=== PATIENT | male | born 1985 | race Caucasian/White ===

== ENCOUNTER → 2019-02-08 | Outpatient (CLI) | payer OTHER | END | disposition home or self-care (01) | LOC: CARDMN 11:07 | PROVIDERS: ATTEND Radiology Diagnostic Radiology | DX: M13.871 Other specified arthritis, right ankle and foot (principal) ==

== ENCOUNTER → 2019-03-09 | Outpatient (CLI) | payer OTHER | END | disposition home or self-care (01) | LOC: RADPV 08:19 | PROVIDERS: ATTEND Orthopaedic Surgery | DX: M13.872 Other specified arthritis, left ankle and foot (principal) ==